=== PATIENT | male | born 1970 | race Caucasian/White ===

== ENCOUNTER 2019-07-30 11:52 | Emergency (ER) | payer OTHER ==
[~2019-07-30] VITALS: Ht 170.2 cm; Wt 83.5 kg
[2019-07-30 11:57] VITALS: BP 148/79
--- NOTE | 2019-07-30 12:03 | NUR ---
AMB TO BED 11
[2019-07-30] MEDS ORDERED: NACL 0.9% 1,000 ML IV ONE (12:10)
--- NOTE | 2019-07-30 12:20 | NUR ---
49 y/o m presents to ER c/o dry cough since Thursday. Pt also c/o body aches, fever, and chills. Pt afebrile. Per pt he has been taking motrin with relief. Last dose of Motrin was last night. Pain level 4/10 body aches. Denies any difficulty breathing. Pt has hx of smoking 1/2 pack of cigarettes a day. Allergies: NKA Med hx: none
--- NOTE | 2019-07-30 12:21 | NUR ---
Pt also reports 2 episodes of diarrhea and pt has nausea. ERMD at bedside.
--- NOTE | 2019-07-30 12:25 | NUR ---
Influenza swab collected
--- NOTE | 2019-07-30 12:44 | NUR ---
chief medical technologist at bedside.
[2019-07-30] MEDS ORDERED: OSELTAMIVIR PHOSPHATE 75 MG CAP PO ONE (13:05)
[2019-07-30 14:04] VITALS: BP 135/72
--- NOTE | 2019-07-30 14:04 | NUR ---
Patient discharged with v/s stable. Written and verbal after care instructions given and explained. Patient alert, oriented and verbalized understanding of instructions. Ambulatory with steady gait. All questions addressed prior to discharge. ID band removed. Patient advised to follow up with PMD. Rx of Promethazine 6.25mg, Tamiflu 75mg and Ibuprofen 600mg was given. Patient educated on indication of medication including possible reaction and side effects. Opportunity to ask questions provided and answered.
== END 2019-07-30 14:09 | disposition home or self-care (01) ==
LOC: MED 11:52
DX: J10.1 Influenza due to other identified influenza virus with other respiratory manifestations (principal); F17.210 Nicotine dependence, cigarettes, uncomplicated
CPT/HCPCS: 71045; 87804; 96360; 99284; J7030; Q0092